=== PATIENT | female | born 2000 | race Caucasian/White ===

== ENCOUNTER → 2022-10-07 17:04 | Outpatient (CLI) | payer BC, SELFPAY ==
--- NOTE | ~2022-10-07 | XR_ITS ---
EXAMINATION: XR hand RT min 3V DATE: 10/07/2022 17:25 INDICATION: Right hand injury. TECHNIQUE: 3 views of right hand were obtained. COMPARISON: None. FINDINGS: Bone alignment is normal. No acute fracture. There is an old healed fracture of diaphysis o f fifth metacarpal. There are benign bone islands in capitate and lunate. There is mild osteoarthriti s of fifth proximal interphalangeal joint. IMPRESSION: 1. No acute fracture. Reviewed, dictated and finalized at location A. R IMPRESSION: 1. No acute fracture.
== END ==
PROVIDERS: PCP Nurse Practitioner Psychiatric/Mental Health; Visit Provider Nurse Practitioner Psychiatric/Mental Health
DX: M25.541 Pain in joints of right hand (principal)
CPT/HCPCS: 73130

== ENCOUNTER 2023-10-07 11:40 | Outpatient (CLI) | payer BC, SELFPAY ==
[2023-10-07 14:37] LABS: Kit Draw Collected
== END 2023-10-07 11:41 | disposition home or self-care (01) ==
LOC: ANHGOSHLAB 11:41
PROVIDERS: PCP Family Medicine; Visit Provider Nurse Practitioner Family
DX: Z00.00 Encounter for general adult medical examination without abnormal findings (principal); R53.83 Other fatigue; E55.9 Vitamin D deficiency, unspecified; F41.9 Anxiety disorder, unspecified; N64.52 Nipple discharge; N94.6 Dysmenorrhea, unspecified
CPT/HCPCS: 36415

== ENCOUNTER 2025-01-05 10:08 | Outpatient (CLI) | payer BC, SELFPAY ==
--- NOTE | ~2025-01-05 | MR_ITS ---
EXAMINATION: MR hand RT wo/w con DATE: 01/05/2025 10:54 INDICATION: Mass at the right fourth and fifth digits. TECHNIQUE: Magnetic resonance imaging (MRI) of the right hand was performed without and with 15 mL Mu ltihance intravenous contrast to include the distal carpal row, metacarpals and digits. Sequences inc luded axial, sagittal and coronal T1-weighted FSE, T2-weighted FS FSE, axial T1-weighted FS FSE and s agittal and coronal fluid sensitive FSE STIR. Postcontrast axial, sagittal and coronal T1-weighted FS FSE sequences were also obtained. COMPARISON: None FINDINGS: There is an approximately 1.5 x 0.8 x 0.5 cm subcutaneous mass in the fifth digit, ulnar to the proxi mal interphalangeal joint. The margins of the lesion are poorly defined. The mass demonstrates enhanc ement as well as prominent flow voids which would be most consistent with a high flow vascular malfor mation. No other abnormal masses, fluid collections or abnormally enhancing lesions identified. Bone alignment is normal. Low signal intensity sclerotic bone island at the capitate. Otherwise normal mar row signal throughout. Joint spaces appear normal with no joint effusion. The flexor and extensor ten dons as well as the collateral ligament complex at the metacarpophalangeal and interphalangeal joints are normal. IMPRESSION: 1. Approximately 1.5 x 0.8 x 0.5 cm enhancing subcutaneous lesion ulnar to the fifth proximal interph alangeal joint with prominent flow voids and poorly defined margins. 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 Reviewed, dictated and finalized at location A. ALT TAMPING MACHINE OPERATOR IMPRESSION: 1. Approximately 1.5 x 0.8 x 0.5 cm enhancing subcutaneous lesion ulnar to the fifth proximal interphalangeal joint with prominent flow voids and poorly defin ed margins. 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
== END 2025-01-05 10:09 | disposition home or self-care (01) ==
LOC: MICIMG 10:08
PROVIDERS: PCP Family Medicine; Visit Provider Plastic Surgery
DX: R22.31 Localized swelling, mass and lump, right upper limb (principal)
CPT/HCPCS: 73220; A9577

== ENCOUNTER 2025-06-08 01:16 | Day surgery (SDC) | payer BC, SELFPAY ==
[2025-05-31 15:32] VITALS: BMI 15.9
--- NOTE | 2025-05-31 15:45 | SUR.PREOP ---
Report to the Outpatient Waiting Room, entrance under the green pavilion located off [facility], at time 8AM on date 06/08/2025. Planned Procedure Time: 10AM.? Time changes happen often and if your time is changed the preop area will call you the afternoon before. - You and your visitor will be asked to self-screen and do not enter if you have any COVID symptoms. Please call surgeon if you need to reschedule. - A mask is optional within the hospital at this time. Patients may have clear liquids (water, carbonated beverages, clear teas, apple juice) until 8 hours prior to surgery with a maximum of 20 ounces (2.AM.) - No food from midnight until time of surgery and no smoking, or chewing tobacco (or any form of nicotine). No chewing gum, candy or mints. Take only the following medications with a SIP of water on the morning of surgery: ALPRAZOLAM, SERTRALINE, CONTROL DO NOT STOP ANY OF YOUR OTHER PRESCRIPTION MEDICATIONS PRIOR TO SURGERY EXCEPT THE FOLLOWING Hold all vitamins and supplements for 3 days per anesthesiologist. Medications to discontinue per physician N/A Please no make-up, nail portuguese, hairspray, perfume, deodorant, or body powder the day of surgery.? No jewelry (including any body piercings) or valuables the day of surgery, leave them at home.? Please take a shower or bath the night before, or the morning of, surgery with an antibacterial soap.? Wear comfortable, loose fitting clothing.? - Jewelry must be removed prior to entering the operating room.? Rings and piercings that are not removed may be cut off. - The hospital will not accept responsibility for valuables.? - Please leave all valuables, including medications, at home the day of surgery. If you are going home after surgery, a licensed national flatbed truck driver must drive you home.? - NO public transportation without another adult if you receive anesthesia. - We recommend that an adult stay with you for 24 hours following discharge. - We also recommend that you do not drive, make important decision, drink alcoholic beverages, or take any drugs that were not prescribed by your health care provider for at least 24 hours after your discharge time. Follow any additional instructions given to you from your surgeon. Telephone instructions given to BIANCA MARTINEZ and asked if any additional questions and then verbalized understanding. Patient advised to call surgeon office or pre surgery nurse liaison [phone] if any additional questions.
--- OUTSIDE RECORDS SUMMARY | 2025-06-08 01:20 | XMS_ITS | Patient Health Record ---
Author Organization [facility] Address [address] [place] [address] Care Team Providers Care Rd Mechanical Engineer Name Role Phone FREDI MAGAÑA, SITA Primary Care Provider Unav ailable Hong Castro Unavailable [phone] Reason For Referral No Information Social History Sex Assigned At : Social History Observation Description Sex Assigned At Female Plan Of Treatment No Information Insurance Providers Payer Name Payer Address Payer Phone Subscriber Number Group Number Insured Name Patient Relationship to Insured Coverage Start Date Coverage End Date Bcbs-I l Ppo [address] [place] [address] [id number] NORMA CROOK Natural Child - Insured has Financial Responsibility
--- NOTE | 2025-06-08 06:40 | PM.HPGS ---
History of Present Illness History of Present Illness Chief complaint: Rt Ring Finger, Rt small finger mass Narrative: Patient seen and examined in pre-operative holding area. No interval change in medical history or symptoms. Patient recalls previous discussion of benefits and alternatives to procedure. Continues to desire to proceed with right small and ring finger mass excision. Reviewed procedure, post-op expectations and risks including but not limited to bleeding, infection, injury to tendon/nerve/vessel, recurrence, cold intolerance, decreased hand function, stiffness, RSD, no change or worsening of symptoms. I discussed the possible use of assistants and their participation in the case. Patient stated understanding and signed the consent form wishing to proceed. Review of Systems Review of Systems: All systems reviewed & are unremarkable except as noted in HPI and below PMFSH Surgical History Surgical History No history of previous surgery Family History Family History Grandparent Family history of mental disorder Depression Hypertension Family history of alcoholism Family history of malignant neoplasm of bone Mother Family history of mental disorder Depression Family history of irritable bowel syndrome Sibling Family history of mental disorder Father Family history of alcoholism Family history of primary malignant neoplasm of liver Other Carcinoma of colon Diabetes mellitus Family history of cardiovascular disease Family history of hypercholesterolemia Family history of malignant neoplasm of breast Social History Social History Social History: Caffeine-80mg daily Smoking status: Never smoker Alcohol intake: never Substance use: never Substance use type: does not use Do You Feel Safe in your Home?: Yes Lack of Transportation: No Lack of Food: Never True Current Housing: I Have Housing Concerned About Future Housing: No Difficulty Paying Gas/Electric Bills: No Difficulty Paying for Meds: No Currently Unemployed: No Education: High School Diploma/GED Difficulty w/ Childcare or Family Care: No Meds Home Medications and Allergies Home Medications ?Medication ?Instructions ?Recorded ?Confirmed ?Type sumatriptan succinate 25 mg tablet See Rx Instructions PO .COMPLEX 03/31/24 06/08/25 Rx (Imitrex) #14 tabs desogestrel-e.estradiol 0.15 1 tablet PO DAILY #84 tabs 09/03/24 06/08/25 Rx mg-0.02 mg(21)/e.estrad 0.01 mg(5) tablet risperidone 0.25 mg tablet 0.125 mg PO QHS 09/28/24 06/08/25 History sertraline 50 mg tablet 50 mg PO DAILY #90 tabs 03/02/25 06/08/25 Rx methylphenidate HCl 5 mg tablet 5 mg PO BID #60 tabs 04/19/25 06/08/25 Rx methylphenidate HCl 5 mg tablet 5 mg PO BID #60 tabs 04/19/25 06/08/25 Rx alprazolam 0.25 mg tablet 0.25 mg PO QHS PRN anxiety #30 tabs 05/30/25 06/08/25 Rx tramadol 50 mg tablet 50 mg PO Q6H PRN pain #12 tabs 06/08/25 Rx Allergies Allergy/AdvReac Type Severity Reaction Status Date / Time paroxetine Allergy Unknown Nausea And Verified 06/08/25 08:34 Vomiting buspirone (From BuSpar) AdvReac diarrhea Verified 06/08/25 08:34 Exam Narrative: unchnaged Assessment and Plan Assessment and plan (1) Localized swelling, mass and lump, right upper limb: Code(s): R22.31 - Localized swelling, mass and lump, right upper limb Status: Acute Assessment and Plan: cont as above
--- NOTE | 2025-06-08 06:40 | W.PM.PROC2 ---
Procedure Note - Detailed Date of Procedure 06/08/25 Pre-op Diagnosis Rt Ring Finger, Rt small finger mass Post-op Diagnosis Same Procedure Performed excision right small and ring finger mass Surgeon Han Garrett MD Operations Vocational Instructor angela hall pa-c Anesthesia MAC Description of Procedure INFORMED CONSENT: The patient was seen and examined and marked in the pre-op area.? The patient signed the consent form. PROCEDURE IN DETAIL:The patient taken back to OR on the stretcher in supine position. Time out performed with anesthesia, surgeon and staff agreeing on patient's name site and surgery to be performed SCDs were placed on the lower extremities and inflated. A tourniquet was placed on {right} upper extremity and antibiotics given IV After anesthesia administered sedation I injected {6}cc 1%lido epi and 0.5% marcaine plain in the palm for digital block of ring and small finger The?{right upper extremity}?was prepped and draped in sterile fashion the??{right upper extremity} was? exsanguinated with Esmarch bandage proximal to masses and tourniquet inflated to 250mmHg First I took my attention to the right ring finger mass where I proceeded with making an incision over the mass through skin and dermis with a 15 blade scalpel. Littler scissors and 15 blade were used to elevate skin flaps and dissect around the fibrous mass around the periosteum. I irrigated with normal saline hemostasis with bipolar cuatyer. I closed with 4-0 chromic. Next I took my attention to the right small finger were I proceeded with making a Israel incision over the mass and ulnar neurovascular bundle through skin and dermis with 15 blade scalpel. Littler scissors and 15 blade were used to elevate this skin flap. Proximal to the mass I identified the ulnar digital nerve and artery. Proceeding with anterograde dissection of these vessels which were protected throughout the procedure I identified a diffuse nondescript mass of vascular tissue that was both associated with the ulnar digital artery and was also tethered to skin and subcutaneous tissue. I proceeded with using micro instruments to dissect around this tissue in an attempt to define its boundaries. Resection was further done with micro scissors and bipolar cautery. Prior to beginning this resection the tourniquet was let down. The finger was warm well perfused. A vascular clamp was applied to the ulnar digital artery noting that the finger was also slow perfused solely on the radial digital artery. After resection of this vascular neoplasm I irrigated with normal saline. The finger was warm well perfused with visible pulsations of the ulnar digital artery. The skin was closed with 4-0 chromic. A dressing of xeroform, 4x4, and tube gauze was applied after the tourniquet was let down noting the hand was warm and well perfused. The patient was then awaken from anesthesia and transferred to the recovery room in stable condition.? Complications - none EBL- 0cc Disposition - home in stable condition Angela Hall PA-C was essential for positioning, retraction, closure and dressing placement [facility] [place] - Charge Forward: Surgery Billing ([id number] same for angela adding )
--- NOTE | 2025-06-08 08:42 | P.PNAN_ITS ---
Anes - Initial Pre Proc Eval Procedure: Operation Date: 06/08/25 10:00 Proposed Procedures p Right Small Finger Vascular Malformation, Right Ring Finger Mass Excision - Han Garrett MD Date/Time: 06/08/25 08:42 Surgeon: Han Garrett MD Pre Op Diagnosis: Rt Ring Finger, Rt small finger mass Patient Data Age: 25 Gender: F Height: 1.73 m Weight: 47.6 kg Allergies Allergy/AdvReac Type Severity Reaction Status Date / Time paroxetine Allergy Unknown Nausea And Verified 06/08/25 08:34 Vomiting buspirone (From BuSpar) AdvReac diarrhea Verified 06/08/25 08:34 Home Medications ?Medication ?Instructions ?Recorded ?Confirmed ?Type sumatriptan succinate 25 mg tablet See Rx Instructions PO .COMPLEX 03/31/24 05/31/25 Rx (Imitrex) #14 tabs desogestrel-e.estradiol 0.15 1 tablet PO DAILY #84 tabs 09/03/24 05/31/25 Rx mg-0.02 mg(21)/e.estrad 0.01 mg(5) tablet risperidone 0.25 mg tablet 0.125 mg PO QHS 09/28/24 05/31/25 History sertraline 50 mg tablet 50 mg PO DAILY #90 tabs 03/02/25 05/31/25 Rx methylphenidate HCl 5 mg tablet 5 mg PO BID #60 tabs 04/19/25 05/31/25 Rx methylphenidate HCl 5 mg tablet 5 mg PO BID #60 tabs 04/19/25 05/31/25 Rx alprazolam 0.25 mg tablet 0.25 mg PO QHS PRN anxiety #30 tabs 05/30/25 05/31/25 Rx tramadol 50 mg tablet 50 mg PO Q6H PRN pain #12 tabs 06/08/25 Rx Patient hx anesthesia problems: none Family hx anesthesia problems: none Results Review: All pre-operative results and documents have been reviewed as part of the pre- operative evaluation. [facility] Surgical History Surgical History No history of previous surgery Family History Family History Grandparent Family history of mental disorder Depression Hypertension Family history of alcoholism Family history of malignant neoplasm of bone Mother Family history of mental disorder Depression Family history of irritable bowel syndrome Sibling Family history of mental disorder Father Family history of alcoholism Family history of primary malignant neoplasm of liver Other Carcinoma of colon Diabetes mellitus Family history of cardiovascular disease Family history of hypercholesterolemia Family history of malignant neoplasm of breast Social History Social History Social History: Caffeine-80mg daily Smoking status: Never smoker Alcohol intake: never Substance use: never Substance use type: does not use Do You Feel Safe in your Home?: Yes Lack of Transportation: No Lack of Food: Never True Current Housing: I Have Housing Concerned About Future Housing: No Difficulty Paying Gas/Electric Bills: No Difficulty Paying for Meds: No Currently Unemployed: No Education: High School Diploma/GED Difficulty w/ Childcare or Family Care: No Anes - Eval Final PreProcedure Day of Procedure 06/08/25 08:42 Patient weight: thin Lungs: normal air movement Airway: Mallampati scale class II Neurological: alert and oriented Last oral intake: >/= 8 hours ASA classification: II Emergent: no Anesthetic plan: proceed Anesthesia type and monitoring: general GIVS and standard monitoring Results Review: All pre-operative results and documents have been reviewed as part of the pre- operative evaluation. Anxiety/noted OCD per EMR. Informed Consent: The patient's anesthetic plan and its attendant risks and benefits were discussed with the patient/family/POA. Questions were solicited and answers provided to the satisfaction of the patient/family/POA.
[2025-06-08] MEDS: LACTATED RINGERS 1,000 ML 30 ML IV CONT ×2 (08:43→12:49)
[2025-06-08 08:53] VITALS: BP 104/71; PULSE 68; RESP 16; TEMP 36.6; O2SAT 100
[2025-06-08] MEDS: ACETAMINOPHEN 500 MG TABLET 1000 MG PO (08:56)
--- NOTE | 2025-06-08 10:20 | SUR.PREOP ---
UPDATED PATIENT ON CHANGE IN RESCHEDULE DUE TO TEST LAB PENDING
[2025-06-08 10:36] LABS: Beta HCG Quantitative < 2.39 mIU/ML
[2025-06-08] MEDS: ceFAZolin 2 GM in SODIUM CHLORIDE 0.9% IV 50 ML 100 ML IVPB (11:18)
[2025-06-08] MEDS: BUPivacaine HCL 0.5% 10 ML AMP 5 ML INFILTRATE (11:39)
[2025-06-08] MEDS: LIDOCAINE 1% LOCAL INJ 10 ML VIAL 5 ML INFILTRATE (11:40)
[2025-06-08] MEDS: BACITRACIN OINTMENT 15 GM TUBE 1 APPLIC TOPICAL (12:33)
[2025-06-08] MEDS: LIDO 1%/EPINEPHRINE 1:100,000 20 ML VIAL 4 ML INFILTRATE (12:36)
--- NOTE | 2025-06-08 12:36 | S_PTH ---
PATIENT: Uzma Will LOC: [facility] U#:[id number] AGE/SX: 25/F ROOM: RE06/08/[address]: Han Garrett MD : 2000 BED: DIS: 06/08/2025 SPEC #: [id number] RECD: 06/08/25 13:34 STATUS: DK REQ #: [id number] CHIDI: 06/08/25 12:[address]: Han Garrett DEPT: [facility] Surgical RECD BY: Sherry Gomez ENTERED: 06/08/25 13:35 SP TYPE: Surgical OTHR DR: Berna Wu MD Tissues: A - Mass B - Mass Procedures: Torres Keratin Hematoxylin and Eosin Stain Gross and Microscopic Level 3
[2025-06-08 12:49] VITALS: BP 119/68; PULSE 70; RESP 16; O2SAT 100
[2025-06-08 13:15] VITALS: BP 102/62; PULSE 64; RESP 16; O2SAT 100
[2025-06-08 13:45] VITALS: BP 99/57; PULSE 70; RESP 16
== END 2025-06-08 13:55 | disposition home or self-care (01) ==
PROVIDERS: Anesthesiology; PCP Family Medicine; Visit Provider Plastic Surgery
PROC: (CPT 26116; principal; 2025-06-08 10:00)
DX: D36.12 Benign neoplasm of peripheral nerves and autonomic nervous system, upper limb, including shoulder (principal); Q27.31 Arteriovenous malformation of vessel of upper limb; F41.9 Anxiety disorder, unspecified; Z79.891 Long term (current) use of opiate analgesic; Z80.8 Family history of malignant neoplasm of other organs or systems; Z80.0 Family history of malignant neoplasm of digestive organs; Z80.3 Family history of malignant neoplasm of breast; Z82.49 Family history of ischemic heart disease and other diseases of the circulatory system
CPT/HCPCS: 26116 ×2; 36415; 84702; 88304; 88342; J0690; A9270; J1100; J2003; J2004; J2250; J2405; J2704; J3010; J7120

== ENCOUNTER 2025-09-09 15:34 | Outpatient (CLI) | payer BC, SELFPAY ==
[2025-09-12 16:07] LABS: Deamidated Gliadin Abs, IgA 2 units (0-19); Deamidated Gliadin Abs, IgG 1 units (0-19); Immunoglobulin A, Qn 103 mg/dL (87-352)
== END 2025-09-09 15:35 | disposition home or self-care (01) ==
LOC: ANHGOSHLAB 15:35
PROVIDERS: PCP Family Medicine; Visit Provider Family Medicine
DX: R10.9 Unspecified abdominal pain (principal)
CPT/HCPCS: 82784; 86231; 86258

== ENCOUNTER 2025-09-14 11:07 | Outpatient (NON) | payer BC, SELFPAY ==
--- OUTSIDE RECORDS SUMMARY | 2025-09-14 14:13 | XMS_ITS | Patient Health Record ---
Author Organization [facility] Address [address] [place] [address] Care Team Providers Care Behavioral Instructor Name Role Phone FREDI MAGAÑA, SITA Primary Care Provider Unav ailable Hong Castro Unavailable [phone] Reason For Referral No Information Social History Sex Assigned At : Social History Observation Description Sex Assigned At Female Plan Of Treatment No Information Insurance Providers Payer Name Payer Address Payer Phone Subscriber Number Group Number Insured Name Patient Relationship to Insured Coverage Start Date Coverage End Date Bcbs-I l Ppo [address] [place] [address] [id number] NORMA CROOK Natural Child - Insured has Financial Responsibility
[2025-09-17 00:06] LABS: Calprotectin, Fecal 9 ug/g (0-120)
== END 2025-09-14 11:08 | disposition home or self-care (01) ==
PROVIDERS: PCP Family Medicine; Visit Provider Family Medicine
DX: R10.9 Unspecified abdominal pain (principal); R19.7 Diarrhea, unspecified
CPT/HCPCS: 83993

== ENCOUNTER 2025-10-06 18:32 | Emergency (ER) | payer BC, SELFPAY ==
--- NOTE | ~2025-10-06 | XR_ITS ---
XR chest 2V HOSTORY: cough COMPARISON:[ None] FINDINGS: Frontal and lateral views of the chest were obtained. The lungs are clear. The heart size is normal in size. Pulmonary vasculature is unremarkable. Osseous structures are intact. IMPRESSION: No acute lung findings.] [ ] Reviewed, dictated and finalized at location S. RVISOR PAYROLL
[2025-10-06 18:42] VITALS: BP 100/71; PULSE 113; RESP 16; TEMP 36.7; O2SAT 99
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
[2025-10-06 19:03] LABS: EDSTREPNEGPOS1 Negative (Negative)
== END 2025-10-06 19:14 | disposition home or self-care (01) ==
PROVIDERS: Emergency Provider Nurse Practitioner; PCP Family Medicine
DX: J20.8 Acute bronchitis due to other specified organisms (principal)
CPT/HCPCS: 71046; 87081; 87880; 99213; G0463